=== PATIENT | female | born 2000 | race Caucasian/White ===

== ENCOUNTER 2019-08-22 12:16 | Emergency (ER) | payer OTHER ==
[~2019-08-22] VITALS: Ht 170.2 cm; Wt 63.6 kg
--- NOTE | 2019-08-22 13:06 | ED Chest Pain ---
General Chief Complaint: Chest Wall Stated Complaint: R SIDE RIB PAIN Nursing Triage Note: Pt amb to triage with c/o Rt chest wall discomfort. Pt reports since 08/13/19 she has been taking abx for bronchitis. Pt reports on this day @ 1115 she was coughing and "felt a pop." Reports discomfort to Rt chest wall upon coughing. Pt states, "it just feels stiff." A&OX4. Denies fever or chills. Nursing Sepsis Screen: No Definite Risk Source: patient Exam Limitations: no limitations History of Present Illness Date Seen by Provider: Aug 22, 2019 Time Seen by Provider: 12:55 Initial Comments This 19-year-old young lady presents to the emergency room with complaints of right lateral costal margin pain. This started when she was coughing earlier today. She felt a popping sensation. She was recently treated for bronchitis and still has some residual cough. She is afebrile. She denies significant pain with inspiration. She denies shortness of breath. She is afebrile. She took ibuprofen 800 mg earlier today without much benefit. Allergies and Home Medications Patient Home Medication List Home Medication List Reviewed: Yes Review of Systems Review of Systems Constitutional: no symptoms reported EENTM: No Symptoms Reported Respiratory: See HPI Cardiovascular: No Symptoms Reported Gastrointestinal: No Symptoms Reported Genitourinary: No Symptoms Reported Musculoskeletal: see HPI Skin: no symptoms reported Psychiatric/Neurological: No Symptoms Reported Endocrine: No Symptoms Reported Past Ckuvdss-Igepkz-Qyqali Hx Past Med/Social Hx: Reviewed and Corrections made Patient Social History Alcohol Use: Rarely Uses Number of Drinks Today: 0 Recreational Drug Use: No Smoking Status: Never a Smoker 2nd Hand Smoke Exposure: No Recent Foreign Travel: No Contact w/Someone Who Travel: No Recent Infectious Disease Expo: No Recent Hopitalizations: No (Denies medical hx. ) Past Medical History Surgeries: Yes Abdominal Respiratory: No Cardiac: No Neurological: No : No Reproductive Disorders: No Genitourinary: No Gastrointestinal: No Musculoskeletal: No Endocrine: No Cancer: No Did You Recieve Any Treatments: No Psychosocial: No Integumentary: No Physical Exam Vital Signs Vital Signs - First Documented 08/22/19 12:40 Temp 36.9 Pulse 63 Resp 18 B/P (MAP) 148/95 (112) Pulse Ox 100 O2 Delivery Room Air Capillary Refill : Less Than 3 Seconds Height, Weight, BMI Height: '" Weight: lbs. oz. kg; 21.00 BMI Method: General Appearance: No Apparent Distress, WD/WN, Thin HEENT: PERRL/EOMI, TMs Normal, Normal ENT Inspection, Pharynx Normal Neck: Normal Inspection Respiratory: Lungs Clear, Normal Breath Sounds, No Accessory Muscle Use, No Respiratory Distress, Other (Right lateral costal margin and tender to palpation over the ribs) Cardiovascular: Regular Rate, Rhythm, No Edema, Normal Peripheral Pulses Gastrointestinal: Normal Bowel Sounds, Non Tender, Soft Extremity: Normal Inspection, No Pedal Edema Neurologic/Psychiatric: Alert, Oriented x3, No Motor/Sensory Deficits, Normal Mood/Affect, scrap stripper hand II-XII Norm as Tested Skin: Normal Color, Warm/Dry Progress/Results/Core Measures Results/Orders Vital Signs/I&O 08/22/19 08/22/19 12:40 13:13 Temp 36.9 36.9 Pulse 63 63 Resp 18 18 B/P (MAP) 148/95 (112) 148/95 (112) Pulse Ox 100 100 O2 Delivery Room Air Room Air Blood Pressure Mean: 112 POS Progress Progress Note : Progress Note Patient's symptoms seem to be musculoskeletal in nature. Features don't seen consistent with pneumonia. Mechanism did not seem significant enough to suspect rib fractures. Patient was informed x-ray would likely be of low yield. She was offered x-ray but declined. She will treat with NSAID medications. Departure Impression Primary Impression: Strain of chest wall Qualified Codes: S29.011A - Strain of muscle and tendon of front wall of thorax, initial encounter Disposition: 01 HOME, SELF-CARE Condition: Stable Departure-Patient Inst. Decision time for Depature: 13:04 Referrals: NO,LOCAL PHYSICIAN (PCP/Family) Primary Care Physician Patient Instructions: Chest Pain That Is Not Caused by the Heart (DC) Add. Discharge Instructions: Your pain is likely due to musculoskeletal strain in the chest wall. You may take ibuprofen up to 600 mg every 6 hours as needed. This should gradually reduce inflammation and improve your pain over a few days. You may add Tylenol (acetaminophen) up to 1000 mg every 6 hours as needed for additional pain relief . Icing in 20 minute intervals over the first couple of days may also improve your pain. Return to care if you have worsening symptoms such as escalating pain, shortness of breath, development of fever, etc. If not improving as expected, you may follow-up at the [facility] or ER. All discharge instructions reviewed with patient and/or family. Voiced understanding. ZAK WILLIAM MD Aug 22, 2019 13:06 POS
[2019-08-22 13:13] VITALS: BP 148/95
== END 2019-08-22 13:13 | disposition home or self-care (01) ==
LOC: ER 12:18
DX: S29.011A Strain of muscle and tendon of front wall of thorax, initial encounter (principal); X50.1XXA Overexertion from prolonged static or awkward postures, initial encounter
CPT/HCPCS: 99283